=== PATIENT | male | born 1930 | race Caucasian/White ===

== ENCOUNTER 2017-06-10 19:15 | Inpatient (IN) | payer MEDICARE ==
[~2017-06-10] VITALS: Ht 175.2 cm; Wt 74.6 kg
[~2017-06-10 19:15] MED LIST: ASPIRIN81 M1 PO; METOPROLOL SR25 MG PO; METOPROLOL SR50 MG PO; METOPROLOL50 MG PO; MULTI VITAMINS1 TAB PO; NORVASC10 MG PO; PRINIVIL40 MG PO; TOPROL XL25 MG PO; VITAMIN D1000 IU PO; ZOCOR20 MG PO
[2017-06-10 19:46] VITALS: BP 162/78
[2017-06-10 19:47] LABS: BASO % 0.3 % (0.0-1.0); EOS # 0.3 10*3/uL (0.0-0.4); EOS % 5.7 % (1.0-4.0); HEMATOCRIT 47.8 % (42.0-52.0); LYMPH # 1.7 10*3/uL (1.3-4.4); LYMPH % 29.8 % (27.0-41.0); MEAN CELL VOLUME 92.6 fl (80.0-94.0); MEAN CORPUSCULAR HGB CONC 33.5 g/dl (33.0-37.0); MEAN PLATELET VOLUME 8.8 fl (9.6-12.3); MONO # 0.6 10*3/uL (0.1-1.0); MONO % 9.8 % (3.0-9.0); NEUT # 3.1 10*3/uL (2.3-7.9); NEUT % 54.2 % (47.0-73.0); PLATELET COUNT AUTOMATED 140 10*3/uL (130-400); RED BLOOD COUNT 5.16 10*6/uL (4.50-5.90); RED CELL DISTRI WIDTH 12.3 % (0-14.5); WHITE BLOOD COUNT 5.8 10*3/uL (4.8-10.8)
[2017-06-10 19:57] LABS: PROTHROMBIN TIME 10.6 SECONDS (9.0-12.4)
[2017-06-10 20:04] LABS: ALBUMIN 3.9 gm/dl (3.1-4.5); ALKALINE PHOSPHATASE 64 U/L (45-117); BILIRUBIN, TOTAL 1.8 mg/dl (0.2-1.0); BUN 15 mg/dl (7-24); CARBON DIOXIDE 26 mmol/L (21-32); CHLORIDE 105 mmol/L (98-107); EST GLOM FILT AFRICAN AMERICAN > 60 ml/min; GLUCOSE 108 mg/dL (65-99); MAGNESIUM 1.9 mg/dL (1.5-2.1); POTASSIUM 4.3 mmol/L (3.5-5.1); SGOT/AST 22 IU/L (3-35); SGPT/ALT 24 U/L (12-78); SODIUM 139 mmol/L (136-145); TOTAL PROTEIN 7.7 gm/dL (6.4-8.2)
[2017-06-10 20:05] LABS: TROPONIN I < 0.015 ng/ml (<0.045)
[2017-06-10 20:30] VITALS: BP 138/78
[2017-06-10 21:00] VITALS: BP 137/83
[2017-06-10 21:28] VITALS: BP 143/74
[2017-06-10 22:00] VITALS: BP 159/68
[2017-06-11] VITALS: BP 123/56
[2017-06-11 06:15] LABS: BASO % 0.5 % (0.0-1.0); EOS # 0.3 10*3/uL (0.0-0.4); EOS % 6.2 % (1.0-4.0); HEMATOCRIT 44.8 % (42.0-52.0); HEMOGLOBIN 15.1 g/dl (14.0-18.0); LYMPH # 1.4 10*3/uL (1.3-4.4); LYMPH % 34.7 % (27.0-41.0); MEAN CELL VOLUME 94.1 fl (80.0-94.0); MEAN CORPUSCULAR HGB 31.7 pg (27.0-31.0); MEAN CORPUSCULAR HGB CONC 33.7 g/dl (33.0-37.0); MONO # 0.5 10*3/uL (0.1-1.0); MONO % 11.6 % (3.0-9.0); NEUT # 1.9 10*3/uL (2.3-7.9); NEUT % 46.8 % (47.0-73.0); PLATELET COUNT AUTOMATED 131 10*3/uL (130-400); RED BLOOD COUNT 4.76 10*6/uL (4.50-5.90); RED CELL DISTRI WIDTH 12.5 % (0-14.5)
[2017-06-11 06:38] LABS: PROTHROMBIN TIME 10.9 SECONDS (9.0-12.4)
[2017-06-11 06:41] LABS: ALBUMIN 3.3 gm/dl (3.1-4.5); ALKALINE PHOSPHATASE 51 U/L (45-117); BUN 13 mg/dl (7-24); CARBON DIOXIDE 28 mmol/L (21-32); CHLORIDE 107 mmol/L (98-107); CHOLESTEROL 144 mg/dL (<200); EST GLOM FILT AFRICAN AMERICAN > 60 ml/min; GLUCOSE 85 mg/dL (65-99); HDL CHOLESTEROL 51 mg/dl (40-60); LDL CHOLESTEROL 76 mg/dL (9-159); PHOSPHOROUS 2.7 mg/dL (2.5-4.9); POTASSIUM 3.8 mmol/L (3.5-5.1); SGOT/AST 17 IU/L (3-35); SGPT/ALT 21 U/L (12-78); SODIUM 141 mmol/L (136-145); TOTAL PROTEIN 6.6 gm/dL (6.4-8.2); TRIGLYCERIDES 87 mg/dl (<150); VLDL CHOLESTEROL 17 mg/dL (6-40)
[2017-06-11 06:57] LABS: HEMOGLOBIN A1c 5.8 % (4.8-5.6)
[2017-06-11 08:00] VITALS: BP 142/70
[2017-06-11 08:06] LABS: VITAMIN D, 25-HYDROXY 32.7 ng/mL (30-100)
[2017-06-11 08:07] LABS: FOLIC ACID 22.4 ng/mL (>5.38)
== END 2017-06-11 10:20 | disposition left against medical advice (07) | DRG 313 ==
LOC: ED 19:15 → EDHOLD 21:14 → 4E 21:31
PROVIDERS: Emergency Medicine; Internal Medicine Hospice and Palliative Medicine
DX: R07.9 Chest pain, unspecified (principal); I25.708 Atherosclerosis of coronary artery bypass graft(s), unspecified, with other forms of angina pectoris; R00.1 Bradycardia, unspecified; Z95.1 Presence of aortocoronary bypass graft; I10 Essential (primary) hypertension; Z53.21 Procedure and treatment not carried out due to patient leaving prior to being seen by health care provider; E78.5 Hyperlipidemia, unspecified; E55.9 Vitamin D deficiency, unspecified; D72.819 Decreased white blood cell count, unspecified; Z79.82 Long term (current) use of aspirin; Z91.041 Radiographic dye allergy status; Z79.899 Other long term (current) drug therapy

== ENCOUNTER → 2017-08-11 | Outpatient (CLI) | payer MEDICARE ==
[2017-08-11 08:21] LABS: ALBUMIN 3.7 gm/dl (3.1-4.5); BILIRUBIN, DIRECT 0.3 mg/dL (0.0-0.2)
== END | disposition home or self-care (01) ==
LOC: LAB 07:31
DX: R89.9 Unspecified abnormal finding in specimens from other organs, systems and tissues (principal)

== ENCOUNTER → 2017-12-20 | Day surgery (SDC) | payer MEDICARE ==
[~2017-12-20] VITALS: Ht 175.2 cm; Wt 77.1 kg
[~2017-12-20] MED LIST changes: +FISH OIL CONC1000 M2 PO; +PRINIVIL20 M1 PO; -PRINIVIL40 MG PO
--- NOTE | ~2017-12-20 | O ---
[place], [place] OPERATIVE NOTE NAME: [facility]NETTE MURPHY [id number] UNIT #: [id number] ROOM: DOCTOR: BRAD HOUSE MD BIRTHDATE: [birth year] DOS: 12/20/2017 PREOPERATIVE DIAGNOSIS: Combined forms of age-related cataract, right eye POSTOPERATIVE DIAGNOSIS: Combined forms of age-related cataract, right eye OPERATION: Extracapsular cataract extraction by phacoemulsification with posterior chamber intraocular lens implantation, right eye. ANESTHESIA: Monitored standby. OPERATIVE FINDINGS AND PROCEDURE: 2% Xylocaine topical anesthetic gel was applied to the eye in the preop area. The patient was taken to the operating room and prepped and draped in the standard fashion for sterile intraocular surgery. A time out procedure was performed verifying correct patient, correct site and corrects lens with Jean Claude House M.D. The operating microscope was swung into position and the lid speculum was inserted. Using a Laxmi paracentesis blade, a paracentesis was made through clear cornea. Viscoelastic was used to fill the anterior chamber. Using a metal keratome a 2.4 mm self-sealing clear corneal cataract incision was made temporally at the limbus. Using a pre-bent 25 gauge cystotome needle, a standard continuous curvilinear capsulorrhexis was performed. The anterior capsule was removed with forceps. The lens nucleus was hydrodissected and phacoemulsified in the posterior chamber. Cortical material was removed with the irrigation aspiration hand piece and the posterior capsule was then polished with a curet under irrigation. The posterior chamber and capsular bag were filled with viscoelastic. A posterior chamber intraocular lens manufactured by: Joe, Model #[id number], and 22.5 diopters in strength were then inserted into the posterior chamber and within the capsular bag using the lens cartridge and injector system. Viscoelastic was removed using the irrigation aspiration handpiece. The anterior chamber was filled with balanced salt solution through the paracentesis. Both the paracentesis site and cataract incisions were hydrated with BSS and verified to be water-tight and self-sealing. Cefuroxime 1 mg/0.1 mL was injected into the anterior chamber through the paracentesis site. The incision checked to be water-tight using a Weck-Vicki sponge. The integrity of the cataract wound and ocular tension were checked. Lid speculum and drapes were removed. The patient was transferred from the operating room to the recovery room in satisfactory condition. [place], [place] OPERATIVE NOTE NAME: JANNETTE MURPHY UNIT #: [id number] ROOM: DOCTOR: BRAD HOUSE MD BIRTHDATE: [birth year] BRAD HOUSE MD CM:OPRECORD:OPERATIVE NOTE [id number] [id number] BRAD HOUSE MD 12/26/17 1021 interface
[2017-12-20 11:35] VITALS: BP 160/81
[2017-12-20 13:04] VITALS: BP 128/62
[2017-12-20 13:15] VITALS: BP 130/59
[2017-12-20 13:29] VITALS: BP 122/65
== END | disposition home or self-care (01) ==
LOC: SDC 12-15 12:30
DX: H25.811 Combined forms of age-related cataract, right eye (principal); F41.9 Anxiety disorder, unspecified; I10 Essential (primary) hypertension; I25.10 Atherosclerotic heart disease of native coronary artery without angina pectoris; K21.9 Gastro-esophageal reflux disease without esophagitis; Z95.5 Presence of coronary angioplasty implant and graft; Z98.890 Other specified postprocedural states; Z82.49 Family history of ischemic heart disease and other diseases of the circulatory system; Z87.891 Personal history of nicotine dependence; Z88.8 Allergy status to other drugs, medicaments and biological substances

== ENCOUNTER → 2018-01-10 | Day surgery (SDC) | payer MEDICARE ==
[~2018-01-10] VITALS: Ht 175.2 cm; Wt 77.1 kg
--- NOTE | ~2018-01-10 | O ---
[place], [place] OPERATIVE NOTE NAME: [facility]URPHY [id number] UNIT #: [id number] ROOM: DOCTOR: BRAD HOUSE MD BIRTHDATE: [birth year] DOS: 01/10/2018 PREOPERATIVE DIAGNOSIS: Cataract, left eye. POSTOPERATIVE DIAGNOSIS: Cataract, left eye. OPERATION: Extracapsular cataract extraction by phacoemulsification with posterior chamber intraocular lens implantation, left eye. ANESTHESIA: Monitored standby. OPERATIVE FINDINGS AND PROCEDURE: 2% Xylocaine topical anesthetic gel was applied to the eye in the preop area. The patient was taken to the operating room and prepped and draped in the standard fashion for sterile intraocular surgery. A time out procedure was performed verifying correct patient, correct site and corrects lens with Jean Claude House M.D. The operating microscope was swung into position and the lid speculum was inserted. Using a Laxmi paracentesis blade, a paracentesis was made through clear cornea. Viscoelastic was used to fill the anterior chamber. Using a metal keratome a 2.4 mm self-sealing clear corneal cataract incision was made temporally at the limbus. Using a pre-bent 25 gauge cystotome needle, a standard continuous curvilinear capsulorrhexis was performed. The anterior capsule was removed with forceps. The lens nucleus was hydrodissected and phacoemulsified in the posterior chamber. Cortical material was removed with the irrigation aspiration hand piece and the posterior capsule was then polished with a curet under irrigation. The posterior chamber and capsular bag were filled with viscoelastic. A posterior chamber intraocular lens manufactured by: Joe, Model #[id number], and 22.5 diopters in strength were then inserted into the posterior chamber and within the capsular bag using the lens cartridge and injector system. Viscoelastic was removed using the irrigation aspiration handpiece. The anterior chamber was filled with balanced salt solution through the paracentesis. Both the paracentesis site and cataract incisions were hydrated with BSS and verified to be water-tight and self-sealing. Cefuroxime 1 mg/0.1 mL was injected into the anterior chamber through the paracentesis site. The incision checked to be water-tight using a Weck-Vicki sponge. The integrity of the cataract wound and ocular tension were checked. Lid speculum and drapes were removed. The patient was transferred from the operating room to the recovery room in satisfactory condition. [place], [place] OPERATIVE NOTE NAME: JANNETTE MURPHY UNIT #: [id number] ROOM: DOCTOR: BRAD HOUSE MD BIRTHDATE: [birth year] BRAD HOUSE MD CM:OPRECORD:OPERATIVE NOTE 1240 [id number] BRAD HOUSE MD 01/10/18 1248 interface
[2018-01-10 10:34] VITALS: BP 144/66
[2018-01-10 11:19] VITALS: BP 127/46
[2018-01-10 11:35] VITALS: BP 95/67
[2018-01-10 11:50] VITALS: BP 113/65
== END | disposition home or self-care (01) ==
LOC: SDC 01-04 12:30
DX: H25.812 Combined forms of age-related cataract, left eye (principal); F41.9 Anxiety disorder, unspecified; I10 Essential (primary) hypertension; I25.10 Atherosclerotic heart disease of native coronary artery without angina pectoris; K21.9 Gastro-esophageal reflux disease without esophagitis; Z95.5 Presence of coronary angioplasty implant and graft; Z87.891 Personal history of nicotine dependence

== ENCOUNTER 2018-08-08 01:09 | Inpatient (IN) | payer MEDICARE, OTHER ==
[~2018-08-08] VITALS: Ht 175.2 cm; Wt 77.1 kg
[2018-08-08] VITALS (10 sets, daily range): BP systolic 86–152; BP diastolic 48–90
--- NOTE | ~2018-08-08 | CON ---
[place], [place] REPORT OF CONSULTATION NAME: JANNETTE MURPHY [facility] #: [id number] UNIT #: [id number] ROOM: 501 DOCTOR: LISSETT LARSON MD BIRTHDATE: [birth year] DOS: 08/08/2018 REASON FOR CONSULTATION: Newly documented atrial fibrillation. HISTORY OF PRESENT ILLNESS: The patient is an 87-year-old man who has a history of atherosclerotic heart disease. He underwent 4-vessel bypass at the [facility] about 8 years ago and has remained active since then. He takes care of his own property, and bowls frequently. He denies any chest pain, orthopnea, PND, dyspnea, pedal edema, palpitations, lightheadedness or syncope. His most recent stress test in 08/2015 showed an ejection fraction of 61% with a small area of distal inferior ischemia. This was felt to be an abnormal but low risk study and he has been managed medically since then. The patient does note that he had atrial fibrillation briefly after his bypass surgery, but this resolved spontaneously and has not recurred until presently. The patient has been troubled by constipation lately. Today, he did undergo a colonoscopy. During the colonoscopy, he was found to have atrial fibrillation with a controlled ventricular response. He tolerated the procedure otherwise well and was only found to have signs of laxative use. After the procedure, he recovered normally and was admitted to the hospital for further evaluation of his atrial fibrillation. Currently, the patient is awake, alert and oriented. He continues to deny any symptoms of palpitations, lightheadedness, syncope, chest pain, orthopnea, PND or any change in his exercise capacity. PAST MEDICAL HISTORY: Includes: 1. Coronary artery disease, status post 4-vessel bypass at [facility] around 2009. Details not currently available, but the patient did have perioperative atrial fibrillation. 2. Essential hypertension. 3. History of benign prostatic hypertrophy with nocturia. 4. History of hip replacement. 5. Pharmacologic myocardial perfusion study 09/03/2015, ejection fraction 61%. Small area of distal inferior ischemia, study abnormal but low risk. 6. Echocardiogram 09/03/2015, normal left ventricular size with mild concentric left ventricular hypertrophy, normal wall motion and systolic function, stage 2 diastolic dysfunction, mild mitral insufficiency, mild tricuspid insufficiency, mildly elevated right ventricular systolic pressure. 7. Atrial fibrillation documented during colonoscopy for constipation, 08/08/2018. MEDICATIONS: Prior to admission, amlodipine 5 mg b.i.d., cholecalciferol 1000 units daily, lisinopril 40 mg daily, metoprolol 25 mg b.i.d., omega-3 fish oil 1000 mg daily and simvastatin 20 mg at bedtime. ALLERGIES: He lists an allergy to IVP DYE. REVIEW OF SYSTEMS: The patient denies diplopia or loss of vision. He denies [place], [place] REPORT OF CONSULTATION NAME: JANNETTE MURPHY UNIT #: [id number] ROOM: [facility] DOCTOR: LISSETT LARSON MD BIRTHDATE: [birth year] any focal weakness. He denies lightheadedness or syncope. He denies palpitations, orthopnea or PND. He denies fevers, chills, sweats or recent weight change. He denies any change in his exercise capacity. He denies nausea or vomiting. He denies hemoptysis or hematemesis. He denies any change in his bladder habits and has no blood in his urine. He does have chronic constipation, but denies any blood in his stools. He has no peripheral edema. He denies any heat or cold intolerance. He denies polydipsia or polyuria. He denies any skin rashes. The remainder of the review of systems is negative except as noted above. FAMILY HISTORY: Negative for early coronary artery disease. SOCIAL HISTORY: The patient is and lives with his . He is retired. He does not smoke or consume excessive amounts of alcohol. PHYSICAL EXAMINATION: GENERAL: Reveals a well-nourished white male who is awake, alert, oriented and looks younger than his stated age. VITAL SIGNS: Pulse is 71 and irregularly irregular. Blood pressure is 152/88. He weighs 77.1 kg and has a body mass index of 25.1. HEENT: Normocephalic, atraumatic. Extraocular muscles are intact. Sclerae are clear. Pupils are equal, round and react to light. The oral mucosa is moist. Tongue is midline. NECK: Supple. He has no jugular distention. Carotids are full. There are no bruits. He has no neck or supraclavicular masses, no thyromegaly. LUNGS: Respirations are unlabored. His chest is clear to auscultation and percussion. He has no presacral edema or chest wall tenderness. CARDIOVASCULAR: His heart has an irregularly irregular rhythm without murmurs, rubs or gallops. The PMI is not displaced. There is no precordial heave, lift or thrill. ABDOMEN: Soft and normally active without masses, organomegaly or bruits. EXTREMITIES: Showed no clubbing, cyanosis or edema. Peripheral pulses are easily palpated in the feet bilaterally. LABORATORY DATA: His electrocardiogram is pending, but monitor strips do show definite atrial fibrillation with a controlled ventricular response. LABORATORY STUDIES: Pending. IMPRESSION: 1. Newly documented atrial fibrillation. 2. History of atherosclerotic heart disease, status post 4-vessel bypass in [facility] 2009. 3. History of essential hypertension. PLAN: The patient is asymptomatic from his atrial fibrillation, but has a CHADS-VASc score of 4 indicating high risk for stroke if he is not anticoagulated. I discussed the various anticoagulation regimens that are available with him and he has agreed to start Xarelto daily. [place], [place] REPORT OF CONSULTATION NAME: JANNETTE MURPHY Jason UNIT #: [id number] ROOM: [facility] DOCTOR: LISSETT LARSON MD BIRTHDATE: [birth year] For now, we will withhold any aspirin products or other anticoagulants and start him on Xarelto this afternoon. We will review his echocardiogram and thyroid functions when they are available. If there are no surprises, he can probably be discharged within the next 24 hours. [place] [facility] and I thank the hospitalist physicians for asking our advice regarding his care. LISSETT LARSON MD CM:CONSTR:REPORT OF CONSULTATION 1528 08/09/18 0057 interface
--- NOTE | ~2018-08-08 | O ---
[place], [place] OPERATIVE NOTE NAME: JANNETTE MURPHY UNIT #: [id number] ROOM: 501 DOCTOR: BESSY CAMPOS MD BIRTHDATE: [birth year] DOS: 08/08/2018 HISTORY OF PRESENT ILLNESS: An 87-year-old patient who has presented with severe constipation. He was given Colace 100 mg daily. He says that has helped him quite bit. We have modified his diet to high fiber and fruit that has significantly helped him along. However, he is still complaining. ALLERGIES: IODINE. FAMILY HISTORY: Noncontributory. PAST SURGICAL HISTORY: CABG. PAST MEDICAL HISTORY: Coronary artery disease, hypertension. SOCIAL HISTORY: Nonsmoker, rare alcohol consumer. History of tubular adenoma polyp in the past. PROCEDURE: Today's procedure part of investigation is colonoscopy. PREMEDICATION: Propofol. SCOPE: Olympus forward-viewing colonoscope 10L video. REPORT: After putting the patient in the left lateral position and application of lubricant to the scope, the scope was introduced. Thereafter, under direct visualization, advanced through the length of colon without difficulty. Severe melanosis coli throughout the length of the colon was appreciated. Base of cecum explored. Appendiceal orifice identified, the ileocecal valve was defined. Two polypoid lesion in hepatic flexure with snare was polypectomized. Samples removed. The patient's colon was biopsied for melanosis coli for documentation as well as photographic series. The patient extubated, tolerated procedure well. IMPRESSION: Diverticulosis, melanosis coli, colonic polyps at hepatic flexure, status post snare polypectomy x 2. PLAN AND DISCUSSION: High fiber diet. ACTIVITY: Ad ruth. FOLLOWUP: Routinely with you in office, p.r.n. visit with us in GI Clinic. [place], [place] OPERATIVE NOTE NAME: JANNETTE MURPHY UNIT #: [id number] ROOM: 501 DOCTOR: BESSY CAMPOS MD BIRTHDATE: [birth year] BESSY CAMPOS MD CM:OPRECORD:OPERATIVE NOTE 0907 1016 BESSY CAMPOS MD 08/29/18 0757 interface
--- NOTE | ~2018-08-08 | EKG ---
[place], [place] ELECTROCARDIOGRAM REPORT NAME: JANNETTE MURPHY UNIT #: [id number] ROOM: [facility] [place][note 2] DOCTOR: MERLINE DRAFT REPORT BIRTHDATE: [birth year] [facility] Test Date: 2018-08-08 Test Time: 09:23:15 Pat Name: JANNETTE MURPHY Department: Room: [facility] [place][note 2] Gender: M Rcp: LORENZO : 1930 Requested By: MALINDA DUKE Order Number: [id number] Reading MD: Dusty Angulo MD Measurements Intervals [place] Rate: 74 P: OK: QRS: -48 QRSD: 115 T: -15 QT: 408 QTc: 453 Interpretive Statements Atrial fibrillation Nonspecific IVCD Electronically Signed On 08-08-2018 19:42:25 PDT by Dusty Angulo MD CM:EKGRPT:ELECTROCARDIOGRAM REPORT 2 41 MALINDA RICK DRAFT REPORT MALINDA DUKE
--- NOTE | ~2018-08-08 | PR ---
[place], [place] PROGRESS NOTE NAME: JEFFREYJANNETTE D UNIT #: [id number] ROOM: [facility] [place] DOCTOR: LISSETT LARSON MD BIRTHDATE: [birth year] DOS: 08/09/2018 SUBJECTIVE: The patient was seen at his bedside today 08/09/2018 for followup of his atherosclerotic heart disease and newly documented atrial fibrillation. The patient does have a history of coronary artery disease with previous bypass. He did have brief atrial fibrillation in the perioperative period, but has not had any further documented arrhythmias until yesterday. The patient was noted to be in atrial fibrillation with a controlled ventricular response during a colonoscopy. He does have a CHADS-VASc score of 4 indicating high risk for future cardioembolic phenomena without anticoagulation and therefore was placed on a direct oral anticoagulant yesterday and is tolerating it well. PHYSICAL EXAMINATION: GENERAL: He is a well-nourished white male who is awake, alert and oriented. VITAL SIGNS: Pulse is 73 and irregularly irregular. Blood pressure is 142/86. He is afebrile and weighs 77.1 kilograms with body mass index 25.1. HEENT: Normocephalic, atraumatic. Extraocular muscles are intact. NECK: Supple. He has no jugular distention. Carotids are full. LUNGS: Respirations are unlabored. HEART: Has an irregularly irregular rhythm without murmurs or gallops. ABDOMEN: Benign. EXTREMITIES: Showed no edema. TSH was normal. The patient's echocardiogram showed normal left ventricular size, wall motion and systolic function with mild concentric left ventricular hypertrophy, ejection fraction was 55-60%. The left atrium was moderately dilated. The right ventricle was mildly dilated, aortic valve was sclerotic. There was mild aortic insufficiency and mild mitral insufficiency. IMPRESSION: 1. Newly documented atrial fibrillation. 2. History of atherosclerotic heart disease, status post 4-vessel bypass at the [facility] in 2009. 3. History of essential hypertension. PLAN: We will continue Xarelto as an outpatient. No other cardiac workup is planned at this time. He may be discharged on his current medical regimen and I would like to see him back in the office in about a month. I thank the hospitalist physicians for asking our advice regarding his care. [place], [place] PROGRESS NOTE NAME: JANNETTE MURPHY UNIT #: [id number] ROOM: 501 DOCTOR: LISSETT LARSON MD BIRTHDATE: [birth year] LISSETT LARSON MD CM:PNTRANS 0 LISSETT LARSON MD 08/09/18 0950 interface
[2018-08-08 14:53] LABS: BASO % 0.4 % (0.0-1.0); EOS # 0.2 10*3/uL (0.0-0.4); EOS % 3.7 % (1.0-4.0); HEMATOCRIT 43.6 % (42.0-52.0); HEMOGLOBIN 14.4 g/dl (14.0-18.0); LYMPH # 1.2 10*3/uL (1.3-4.4); LYMPH % 23.9 % (27.0-41.0); MEAN CORPUSCULAR HGB 31.4 pg (27.0-31.0); MEAN PLATELET VOLUME 8.8 fl (9.6-12.3); MONO # 0.5 10*3/uL (0.1-1.0); MONO % 9.3 % (3.0-9.0); NEUT % 62.5 % (47.0-73.0); PLATELET COUNT AUTOMATED 125 10*3/uL (130-400); RED BLOOD COUNT 4.59 10*6/uL (4.50-5.90); RED CELL DISTRI WIDTH 12.4 % (0-14.5); WHITE BLOOD COUNT 4.9 10*3/uL (4.8-10.8)
[2018-08-08 15:24] LABS: ALBUMIN 3.1 gm/dl (3.1-4.5); ALKALINE PHOSPHATASE 55 U/L (45-117); BUN 15 mg/dl (7-24); CHLORIDE 104 mmol/L (98-107); CREATININE 1.21 mg/dL (0.70-1.30); POTASSIUM 4.5 mmol/L (3.5-5.1); SGOT/AST 17 IU/L (3-35); SGPT/ALT 24 U/L (12-78); SODIUM 141 mmol/L (136-145); TOTAL PROTEIN 6.2 gm/dL (6.4-8.2)
[2018-08-08 15:26] LABS: INTERNATIONAL NORM RATIO 1.1 (2.0-3.5)
[2018-08-09] VITALS: BP 109/64
[2018-08-09 06:52] LABS: BASO % 0.4 % (0.0-1.0); EOS # 0.2 10*3/uL (0.0-0.4); EOS % 3.9 % (1.0-4.0); HEMATOCRIT 44.3 % (42.0-52.0); HEMOGLOBIN 14.5 g/dl (14.0-18.0); LYMPH # 1.6 10*3/uL (1.3-4.4); LYMPH % 29.3 % (27.0-41.0); MEAN CELL VOLUME 94.7 fl (80.0-94.0); MEAN CORPUSCULAR HGB CONC 32.7 g/dl (33.0-37.0); MEAN PLATELET VOLUME 9.3 fl (9.6-12.3); MONO # 0.6 10*3/uL (0.1-1.0); MONO % 11.3 % (3.0-9.0); NEUT % 55.1 % (47.0-73.0); PLATELET COUNT AUTOMATED 139 10*3/uL (130-400); RED BLOOD COUNT 4.68 10*6/uL (4.50-5.90); RED CELL DISTRI WIDTH 12.4 % (0-14.5); WHITE BLOOD COUNT 5.4 10*3/uL (4.8-10.8)
[2018-08-09 07:10] LABS: ALBUMIN 3.2 gm/dl (3.1-4.5); BUN 15 mg/dl (7-24); CHLORIDE 104 mmol/L (98-107); POTASSIUM 4.6 mmol/L (3.5-5.1); SODIUM 139 mmol/L (136-145)
[2018-08-09 07:20] LABS: ALKALINE PHOSPHATASE 57 U/L (45-117); CHOLESTEROL 131 mg/dL (<200); CREATININE 1.16 mg/dL (0.70-1.30); FREE T4 1.29 ng/dl (0.76-1.46); HDL CHOLESTEROL 40 mg/dl (40-60); LDL CHOLESTEROL 71 mg/dL (9-159); PHOSPHOROUS 2.6 mg/dL (2.5-4.9); SGOT/AST 17 IU/L (3-35); SGPT/ALT 26 U/L (12-78); THYROID STIM HORMONE (HS) 0.735 uIU/ml (0.358-4.75); TOTAL PROTEIN 6.1 gm/dL (6.4-8.2); TRIGLYCERIDES 101 mg/dl (<150); VLDL CHOLESTEROL 20 mg/dL (6-40)
[2018-08-09 08:27] VITALS: BP 142/86
[2018-08-09 09:56] LABS: VITAMIN D, 25-HYDROXY 36.9 ng/mL (30-100)
[2018-08-09 12:00] VITALS: BP 108/63
[2018-08-09] MEDS ORDERED: XARE20MG PO (13:55)
== END 2018-08-09 14:28 | disposition home or self-care (01) | DRG 392 ==
LOC: SDC 01:09 → 5E 10:43
PROVIDERS: Registered Nurse
PROC: 0DBE8ZX Excision of Large Intestine, Via Natural or Artificial Opening Endoscopic, Diagnostic (ICD-10-PCS; principal; 2018-08-08)
PROC: 0DBL8ZZ Excision of Transverse Colon, Via Natural or Artificial Opening Endoscopic (ICD-10-PCS; principal; 2018-08-08)
DX: K57.30 Diverticulosis of large intestine without perforation or abscess without bleeding (principal); N40.0 Benign prostatic hyperplasia without lower urinary tract symptoms; K59.00 Constipation, unspecified; D12.3 Benign neoplasm of transverse colon; I48.91 Unspecified atrial fibrillation; I25.118 Atherosclerotic heart disease of native coronary artery with other forms of angina pectoris; I10 Essential (primary) hypertension; E78.5 Hyperlipidemia, unspecified; E78.00 Pure hypercholesterolemia, unspecified; Z95.1 Presence of aortocoronary bypass graft; Z79.01 Long term (current) use of anticoagulants; Z79.899 Other long term (current) drug therapy; Z91.041 Radiographic dye allergy status; Z81.1 Family history of alcohol abuse and dependence

== ENCOUNTER 2018-11-26 05:49 | Emergency (ER) | payer MEDICARE, OTHER ==
[~2018-11-26] VITALS: Ht 175.2 cm; Wt 74.8 kg
--- NOTE | ~2018-11-26 | EKG ---
[place], [place] ELECTROCARDIOGRAM REPORT NAME: JANNETTE MURPHY UNIT #: [id number] ROOM: DOCTOR: EPIPHANY DRAFT REPORT BIRTHDATE: [birth year] [facility] Test Date: 2018-11-26 Test Time: 06:36:03 Pat Name: JANNETTE MURPHY Department: Room: Gender: M Data Architect: Mery Downing : 1930 Requested By: ARCHIE TABOR Order Number: [id number] Reading MD: Dusty Angulo MD Measurements Intervals [place] Rate: 67 P: ME: QRS: -46 QRSD: 119 T: 14 QT: 466 QTc: 492 Interpretive Statements Atrial fibrillation Nonspecific interventricular conduction delay Compared to ECG 08/08/2018 09:23:15 No significant change Electronically Signed On 11-26-2018 15:50:53 PST by Dusty Angulo MD CM:EKGRPT:ELECTROCARDIOGRAM REPORT 0636 1550 ARCHIE LEUNG DRAFT REPORT ARCHIE TABOR DO
[~2018-11-26 05:49] MED LIST changes: +XARE20MG PO
[2018-11-26 06:55] LABS: BASO % 0.3 % (0.0-1.0); EOS # 0.1 10*3/uL (0.0-0.4); EOS % 1.5 % (1.0-4.0); HEMOGLOBIN 15.9 g/dl (14.0-18.0); LYMPH # 1.1 10*3/uL (1.3-4.4); LYMPH % 14.8 % (27.0-41.0); MEAN CELL VOLUME 94.7 fl (80.0-94.0); MEAN CORPUSCULAR HGB 31.4 pg (27.0-31.0); MEAN CORPUSCULAR HGB CONC 33.1 g/dl (33.0-37.0); MONO # 0.5 10*3/uL (0.1-1.0); MONO % 6.8 % (3.0-9.0); NEUT # 5.5 10*3/uL (2.3-7.9); NEUT % 76.3 % (47.0-73.0); PLATELET COUNT AUTOMATED 146 10*3/uL (130-400); RED BLOOD COUNT 5.07 10*6/uL (4.50-5.90); RED CELL DISTRI WIDTH 12.6 % (0-14.5); WHITE BLOOD COUNT 7.2 10*3/uL (4.8-10.8)
[2018-11-26 07:10] LABS: ALBUMIN 3.6 gm/dl (3.1-4.5); ALKALINE PHOSPHATASE 75 U/L (45-117); BUN 18 mg/dl (7-24); CHLORIDE 105 mmol/L (98-107); CREATININE 1.21 mg/dL (0.70-1.30); LIPASE 380 U/L (73-393); POTASSIUM 4.1 mmol/L (3.5-5.1); SGOT/AST 88 IU/L (3-35); SGPT/ALT 62 U/L (12-78); SODIUM 139 mmol/L (136-145); TOTAL PROTEIN 7.1 gm/dL (6.4-8.2)
[2018-11-26 08:58] LABS: BILIRUBIN NEGATIVE (NEGATIVE); BLOOD 1+ (NEGATIVE); CLARITY SL CLOUDY (CLEAR); COLOR YELLOW (YELLOW); GLUCOSE NEGATIVE (NEGATIVE); KETONE NEGATIVE (NEGATIVE); LEUKO ESTERASE 1+ (NEGATIVE); NITRITE NEGATIVE (NEGATIVE)
[2018-11-26 09:24] LABS: CALCIUM OXALATE CRYSTALS 1+
[2018-11-26 11:00] VITALS: BP 132/73
[2018-11-26] MEDS ORDERED: MACROBID100 M1 PO (11:36)
== END 2018-11-26 11:40 | disposition home or self-care (01) ==
LOC: ED 05:49
PROVIDERS: Emergency Medicine
DX: N39.0 Urinary tract infection, site not specified (principal); I71.4 Abdominal aortic aneurysm, without rupture; I25.10 Atherosclerotic heart disease of native coronary artery without angina pectoris; E78.5 Hyperlipidemia, unspecified; I10 Essential (primary) hypertension; I48.91 Unspecified atrial fibrillation; Z91.041 Radiographic dye allergy status; Z79.899 Other long term (current) drug therapy

== ENCOUNTER → 2018-11-30 | Outpatient (CLI) | payer MEDICARE, OTHER ==
[~2018-11-30] MED LIST changes: +MACROBID100 M1 PO
== END | disposition home or self-care (01) ==
LOC: RESCLI 02:53
DX: I48.0 Paroxysmal atrial fibrillation (principal); E80.4 Gilbert syndrome; E78.2 Mixed hyperlipidemia; E55.9 Vitamin D deficiency, unspecified; I10 Essential (primary) hypertension; K59.00 Constipation, unspecified; I71.4 Abdominal aortic aneurysm, without rupture; E78.00 Pure hypercholesterolemia, unspecified; Z79.82 Long term (current) use of aspirin; Z79.899 Other long term (current) drug therapy; Z88.8 Allergy status to other drugs, medicaments and biological substances

== ENCOUNTER → 2019-03-12 | Outpatient (CLI) | payer MEDICARE, OTHER | END | disposition home or self-care (01) | LOC: CT 09:00 | DX: I71.4 Abdominal aortic aneurysm, without rupture (principal); K80.20 Calculus of gallbladder without cholecystitis without obstruction; I51.7 Cardiomegaly; R97.20 Elevated prostate specific antigen [PSA] ==

== ENCOUNTER → 2019-04-16 | Outpatient (CLI) | payer MEDICARE, OTHER | END | disposition home or self-care (01) | LOC: RESCLI 01:17 | DX: I48.0 Paroxysmal atrial fibrillation (principal); E80.4 Gilbert syndrome; E78.2 Mixed hyperlipidemia; E55.9 Vitamin D deficiency, unspecified; I10 Essential (primary) hypertension; K59.00 Constipation, unspecified; E78.00 Pure hypercholesterolemia, unspecified; I71.4 Abdominal aortic aneurysm, without rupture; Z79.899 Other long term (current) drug therapy ==

== ENCOUNTER → 2019-07-10 | Outpatient (CLI) | payer MEDICARE, OTHER ==
[2019-07-10 11:10] LABS: HEMATOCRIT 47.3 % (42.0-52.0); MEAN CELL VOLUME 94.4 fl (80.0-94.0); MEAN CORPUSCULAR HGB 31.9 pg (27.0-31.0); MEAN CORPUSCULAR HGB CONC 33.8 g/dl (33.0-37.0); RED BLOOD COUNT 5.01 10*6/uL (4.50-5.90); RED CELL DISTRI WIDTH 12.4 % (0-14.5); WHITE BLOOD COUNT 5.4 10*3/uL (4.8-10.8)
[2019-07-10 11:40] LABS: ALBUMIN 3.7 gm/dl (3.1-4.5); BUN 18 mg/dl (7-24); CHLORIDE 105 mmol/L (98-107); CHOLESTEROL 141 mg/dL (<200); POTASSIUM 4.2 mmol/L (3.5-5.1); SGOT/AST 26 IU/L (3-35); SODIUM 137 mmol/L (136-145)
[2019-07-10 11:51] LABS: ALKALINE PHOSPHATASE 64 U/L (45-117); CREATININE 1.22 mg/dL (0.70-1.30); HDL CHOLESTEROL 54 mg/dl (40-60); LDL CHOLESTEROL 71 mg/dL (9-159); SGPT/ALT 35 U/L (12-78); TOTAL PROTEIN 7.2 gm/dL (6.4-8.2); TRIGLYCERIDES 79 mg/dl (<150); VLDL CHOLESTEROL 16 mg/dL (6-40)
== END | disposition home or self-care (01) ==
LOC: LAB 10:42
PROVIDERS: Internal Medicine
DX: E78.2 Mixed hyperlipidemia (principal); E55.9 Vitamin D deficiency, unspecified; I10 Essential (primary) hypertension; Z79.899 Other long term (current) drug therapy

== ENCOUNTER → 2019-07-11 | Outpatient (CLI) | payer MEDICARE, OTHER | LOC: RESCLI 01:50 | DX: I48.0 Paroxysmal atrial fibrillation (principal); E80.4 Gilbert syndrome; E78.2 Mixed hyperlipidemia; E55.9 Vitamin D deficiency, unspecified; I10 Essential (primary) hypertension; K59.00 Constipation, unspecified; Z79.899 Other long term (current) drug therapy; I71.4 Abdominal aortic aneurysm, without rupture ==

== ENCOUNTER → 2020-05-20 | Outpatient (CLI) | payer MEDICARE, OTHER ==
[2020-05-20 08:35] LABS: BASO % 0.4 % (0.0-1.0); EOS # 0.3 10*3/uL (0.0-0.4); HEMATOCRIT 49.2 % (42.0-52.0); LYMPH # 1.1 10*3/uL (1.3-4.4); LYMPH % 22.7 % (27.0-41.0); MEAN CELL VOLUME 95.9 fl (80.0-94.0); MEAN CORPUSCULAR HGB 30.8 pg (27.0-31.0); MEAN CORPUSCULAR HGB CONC 32.1 g/dl (33.0-37.0); MEAN PLATELET VOLUME 8.9 fl (9.6-12.3); MONO # 0.4 10*3/uL (0.1-1.0); NEUT # 3.2 10*3/uL (2.3-7.9); NEUT % 64.7 % (47.0-73.0); PLATELET COUNT AUTOMATED 147 10*3/uL (130-400); RED BLOOD COUNT 5.13 10*6/uL (4.50-5.90); RED CELL DISTRI WIDTH 12.4 % (0-14.5)
[2020-05-20 09:04] LABS: ALBUMIN 3.7 gm/dl (3.1-4.5); CREATININE 1.44 mg/dL (0.70-1.30); TOTAL PROTEIN 7.3 gm/dL (6.4-8.2)
== END | disposition home or self-care (01) ==
LOC: LAB 08:14
PROVIDERS: Student in an Organized Health Care Education/Training Program
DX: I25.10 Atherosclerotic heart disease of native coronary artery without angina pectoris (principal); I10 Essential (primary) hypertension; E78.2 Mixed hyperlipidemia; E55.9 Vitamin D deficiency, unspecified; Z79.899 Other long term (current) drug therapy

== ENCOUNTER → 2020-05-22 | Outpatient (CLI) | payer MEDICARE, OTHER | END | disposition home or self-care (01) | LOC: RESCLI 01:03 | DX: Z51.81 Encounter for therapeutic drug level monitoring (principal); I10 Essential (primary) hypertension; I25.10 Atherosclerotic heart disease of native coronary artery without angina pectoris; E55.9 Vitamin D deficiency, unspecified; E78.2 Mixed hyperlipidemia; I48.0 Paroxysmal atrial fibrillation; K59.00 Constipation, unspecified; R89.9 Unspecified abnormal finding in specimens from other organs, systems and tissues; I71.4 Abdominal aortic aneurysm, without rupture; G47.00 Insomnia, unspecified ==

== ENCOUNTER → 2020-09-03 | Outpatient (CLI) | payer MEDICARE, OTHER | END | disposition home or self-care (01) | LOC: RESCLI 05:10 | PROVIDERS: ATTEND Internal Medicine Nephrology | DX: I12.9 Hypertensive chronic kidney disease with stage 1 through stage 4 chronic kidney disease, or unspecified chronic kidney disease (principal); N18.9 Chronic kidney disease, unspecified; I25.10 Atherosclerotic heart disease of native coronary artery without angina pectoris; E55.9 Vitamin D deficiency, unspecified; G47.00 Insomnia, unspecified; E78.2 Mixed hyperlipidemia; I48.0 Paroxysmal atrial fibrillation; K59.00 Constipation, unspecified; R89.9 Unspecified abnormal finding in specimens from other organs, systems and tissues; I71.4 Abdominal aortic aneurysm, without rupture; E80.4 Gilbert syndrome; K21.9 Gastro-esophageal reflux disease without esophagitis; Z79.899 Other long term (current) drug therapy; Z88.8 Allergy status to other drugs, medicaments and biological substances; Z98.890 Other specified postprocedural states ==